=== PATIENT | female | born 2005 | race Caucasian/White ===

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

== ENCOUNTER 2023-05-08 08:24 | Outpatient (CLI) | payer OTHER, SELFPAY ==
[2023-05-08 15:50] LABS: Chlamydia DNA Amplified* NOT DETECTED (No Detected); GC DNA Amplified* NOT DETECTED (No Detected)
== END 2023-05-08 08:25 | disposition home or self-care (01) ==
PROVIDERS: PCP Nurse Practitioner Family; Visit Provider Nurse Practitioner Family
DX: Z11.3 Encounter for screening for infections with a predominantly sexual mode of transmission (principal)
CPT/HCPCS: 87491; 87591

== ENCOUNTER 2024-05-22 11:03 | Outpatient (CLI) | payer BC, SELFPAY | END 2024-05-22 11:04 | disposition home or self-care (01) | LOC: KYNREF 11:03 | PROVIDERS: PCP Nurse Practitioner Family; Visit Provider Nurse Practitioner Family | DX: Z12.4 Encounter for screening for malignant neoplasm of cervix (principal) | CPT/HCPCS: 87624; 87625; 88141; 88142 ==

== ENCOUNTER 2024-09-23 10:26 | Outpatient (CLI) | payer BC, SELFPAY ==
[2024-09-23 15:28] LABS: Chlamydia DNA Amplified* NOT DETECTED (No Detected); GC DNA Amplified* NOT DETECTED (No Detected)
== END 2024-09-23 10:27 | disposition home or self-care (01) ==
PROVIDERS: PCP Nurse Practitioner Family; Visit Provider Nurse Practitioner Family
DX: Z11.3 Encounter for screening for infections with a predominantly sexual mode of transmission (principal); R10.32 Left lower quadrant pain
CPT/HCPCS: 81001; 87086; 87491; 87591

== ENCOUNTER 2024-09-30 07:58 | Outpatient (CLI) | payer BC, SELFPAY ==
--- NOTE | 2024-09-30 08:15 | CRLHL7_ITS ---
For Patients: As a result of the Century Cures Act, medical imaging exams and procedure reports are released immediately into your electronic medical record. You may view this report before your referring provider. If you have questions, please contact your health care provider. CLINICAL HISTORY: Left lower quadrant pain TECHNIQUE: 2D zavala scale ultrasound. In addition color Doppler and spectral Doppler analysis was performed of the pelvis using a transabdominal and transvaginal approach. FINDINGS: Uterus measures 6.3 x 2.8 x 3.0 cm. The endometrial lining appears normal and measures 5 mm in thickness. The right ovary measures 3.9 x 2.1 x 2.3 cm in size and the left ovary measures 3.2 x 1.7 x 3.1 cm. The ovaries demonstrate normal arterial and venous blood flow on color Doppler and spectral Doppler analysis. There are no suspicious fluid collections within the cul-de-sac. Multiple ovarian follicles are present bilaterally. IMPRESSION: No ovarian torsion or adnexal mass. No uterine fibroid or excess pelvic free fluid. Dictated by Nav Campbell MD @ 09/30/2024 9:19:59 AM (Electronically Signed)
== END 2024-09-30 07:59 | disposition home or self-care (01) ==
LOC: US 07:59
PROVIDERS: PCP Nurse Practitioner Family; Visit Provider Nurse Practitioner Family
DX: R10.32 Left lower quadrant pain (principal)
CPT/HCPCS: 76830; 76856; 93976

== ENCOUNTER 2024-12-17 06:58 | Outpatient (CLI) | payer BC, SELFPAY | END 2024-12-17 06:59 | disposition home or self-care (01) | LOC: NFLDREF 12-19 12:57 | PROVIDERS: PCP Nurse Practitioner Family; Referring Provider Nurse Practitioner Family; Visit Provider Nurse Practitioner Family | DX: R19.7 Diarrhea, unspecified (principal) | CPT/HCPCS: 87493 ==

== ENCOUNTER 2025-05-26 08:37 | Outpatient (CLI) | payer BC, SELFPAY ==
[2025-05-26 14:57] LABS: Chlamydia DNA Amplified* NOT DETECTED (No Detected); GC DNA Amplified* NOT DETECTED (No Detected)
== END 2025-05-26 08:38 | disposition home or self-care (01) ==
PROVIDERS: PCP Nurse Practitioner Family; Visit Provider Nurse Practitioner Family
DX: Z00.00 Encounter for general adult medical examination without abnormal findings (principal)
CPT/HCPCS: 87491; 87591